=== PATIENT | female | born 1990 ===

== ENCOUNTER 2021-07-21 14:50 | Outpatient (CLI) | payer OTHER | END 2021-07-21 16:35 | disposition home or self-care (01) | LOC: PRENATAL 14:50 | PROVIDERS: ATTEND Obstetrics & Gynecology Maternal & Fetal Medicine | DX: O35.0XX1 Maternal care for (suspected) central nervous system malformation in fetus, fetus 1 (principal); O35.3XX1 Maternal care for (suspected) damage to fetus from viral disease in mother, fetus 1; O98.512 Other viral diseases complicating pregnancy, second trimester; O28.1 Abnormal biochemical finding on antenatal screening of mother; Z36.89 Encounter for other specified antenatal screening; Z3A.19 19 weeks gestation of pregnancy ==

== ENCOUNTER 2021-11-23 09:21 | Inpatient (IN) | payer OTHER ==
[~2021-11-23] VITALS: Ht 162.6 cm; Wt 83.9 kg
[2021-11-23] MEDS ORDERED: PRENATABS RX T1 EACH PO (10:08)
[2021-11-25] MEDS ORDERED: PROGESTERONE200 MG (09:48)
== END 2021-11-25 14:06 | disposition home or self-care (01) | DRG 807 ==
LOC: LDR 09:21 → OB/GYN 16:07
PROVIDERS: ADMIT Specialist; ATTEND Specialist
PROC: 10E0XZZ Delivery of Products of Conception, External Approach (ICD-10-PCS; principal; 2021-11-23)
PROC: 0W8NXZZ Division of Female Perineum, External Approach (ICD-10-PCS; 2021-11-23)
PROC: 4A1HXCZ Monitoring of Products of Conception, Cardiac Rate, External Approach (ICD-10-PCS; 2021-11-23)
DX: O80 Encounter for full-term uncomplicated delivery (principal); Z37.0 Single live birth; Z3A.37 37 weeks gestation of pregnancy; Z20.822 Contact with and (suspected) exposure to COVID-19

== ENCOUNTER 2023-01-11 17:49 | Outpatient (CLI) | payer OTHER ==
[~2023-01-11 17:49] MED LIST: PRENATABS RX T1 EACH PO; PROGESTERONE200 MG
== END 2023-01-12 09:12 | disposition home or self-care (01) ==
LOC: OBS/DEL 17:49
PROVIDERS: ATTEND Specialist
DX: O26.893 Other specified pregnancy related conditions, third trimester (principal); O09.43 Supervision of pregnancy with grand multiparity, third trimester; R42 Dizziness and giddiness; Z3A.34 34 weeks gestation of pregnancy

== ENCOUNTER 2023-01-13 04:30 | Inpatient (IN) | payer OTHER ==
[~2023-01-13] VITALS: Ht 162.6 cm; Wt 84.4 kg
== END 2023-01-15 17:59 | disposition home or self-care (01) | DRG 805 ==
LOC: LDR 04:30 → OB/GYN 04:30
PROVIDERS: ADMIT Specialist; ATTEND Specialist
PROC: 10E0XZZ Delivery of Products of Conception, External Approach (ICD-10-PCS; principal; 2023-01-13)
PROC: 0HQ9XZZ Repair Perineum Skin, External Approach (ICD-10-PCS; 2023-01-13)
PROC: 4A1HXCZ Monitoring of Products of Conception, Cardiac Rate, External Approach (ICD-10-PCS; 2023-01-13)
DX: O70.0 First degree perineal laceration during delivery (principal); O60.14X0 Preterm labor third trimester with preterm delivery third trimester, not applicable or unspecified; Z37.0 Single live birth; Z3A.34 34 weeks gestation of pregnancy; Z20.822 Contact with and (suspected) exposure to COVID-19